=== PATIENT | female | born 1935 | race Caucasian/White ===

== ENCOUNTER 2017-05-10 13:47 | Emergency (ER) | payer MEDICARE ==
[2017-05-10] MEDS: ACETAMINOPHEN 325 MG TAB PO ONE (14:19)
--- NOTE | 2017-05-10 14:24 | Emergency Department Record ---
History of Present Illness - General Chief Complaint: Dizziness Stated Complaint: DIZZY/PAIN IN BACK OF NECK Time Seen by Provider: 05/10/17 14:04 Source: Patient Mode of Arrival: Ambulatory Limitations: No limitations - History of Present Illness Initial Comments: The patient is here for multiple issues. She has had a chronic problem with dizziness for almost a year. The symptoms come and go and presently have resolved. The real reason she is here is that she developed abdominal cramping last night that lasted a few hours and went away. She denied any CP, SOB, RANDY, nausea, vomiting, or diarrhea. She also has had posterior neck and head pain which came on last night and have also been intermittent. Presently the pain is gone. She denies any visual changes, arm or leg numbness, weakness or any balance issues. The patient is concerned she may have had a stroke so she decided to come to the ER. MD Complaint: Dizziness Onset/Timin -: Days(s) Timing: Gradual onset, Waxing/waning, Now resolved Description: Off-balance History of Same: No History of Trauma: No Severity: Moderate Improves With: Remaining still Worsens With: Movement - Amity Coma Scale Eye Response: (4) Open spontaneously Motor Response: (6) Obeys commands Verbal Response: (5) Oriented Steven Total: 15 - Related Data Home Medications Medication Instructions Recorded Confirmed Last Taken Levothyroxine Sodium [Synthroid] 25 mcg PO DAILY 05/10/17 05/10/17 05/10/17 Losartan Potassium [Losartan 25 mg PO DAILY 05/10/17 05/10/17 05/10/17 Potassium] Simvastatin [Simvastatin] 20 mg PO DAILY 05/10/17 05/10/17 05/10/17 Allergies Allergy/AdvReac Type Severity Reaction Status Date / Time No Known Drug Allergies Allergy Verified 05/10/17 13:53 Travel Screening - Travel/Exposure Within Last 30 Days Have you traveled within the last 30 days?: No - Travel/Exposure Within Last Year Have you traveled outside the [place] in the last year?: No - Additonal Travel Details Have you been exposed to anyone with a communicable illness?: No Review of Systems Constitutional: Denies: Chills, Fever Eyes: Denies: Eye discharge ENT: Denies: Congestion Respiratory: Denies: Cough, Dyspnea Past Medical History - SOCIAL HISTORY Smoking Status: Former smoker Alcohol Use: Occassional Drug Use: None - RESPIRATORY Hx Respiratory Disorders: No - CARDIOVASCULAR Hx Cardio Disorders: Yes Hx Hypertension: Yes Comment:: high cholesterol - NEURO Hx Neuro Disorders: No - GI Hx GI Disorders: Yes Hx of Polyps: Yes - Hx Genitourinary Disorders: No - ENDOCRINE Hx Endocrine Disorders: Yes Hx Thyroid Disease: Yes - MUSCULOSKELETAL Hx Musculoskeletal Disorders: Yes Hx Arthritis: Yes - PSYCH Hx Psych Problems: No - HEMATOLOGY/ONCOLOGY Hx Hematology/Oncology Disorders: Yes Hx Cancer: Yes (skin-left forehead) Hx Chemotherapy: No Hx Radiation Therapy: No Family Medical History Any Significant Family History?: Yes Hx Cancer: Brother/Sister *Cancer Comment: liver Physical Exam - General General Appearance: Alert, Oriented x3, Cooperative, No acute distress - Head Head exam: Atraumatic, Normocephalic, Normal inspection - Eye Eye exam: Normal appearance, PERRL, EOMI - ENT Throat exam: Normal inspection. negative: Tonsillar erythema, Tonsillar exudate - Neck Neck exam: Normal inspection, Full ROM, Tenderness (There is mild tenderness to palpation over the R posterior cervical area at the C3-4 area which exaclty reproduces the pain.). negative: Lymphadenopathy - Respiratory Respiratory exam: Normal lung sounds bilaterally. negative: Respiratory distress - Cardiovascular Cardiovascular Exam: Regular rate, Normal rhythm, Normal heart sounds - GI/Abdominal GI/Abdominal exam: Soft, Normal bowel sounds. negative: Tenderness - Extremities Extremities exam: Normal inspection, Full ROM, Normal capillary refill. negative: Tenderness - Back Back exam: Reports: Normal inspection, Full ROM. Denies: Muscle spasm, Rash noted, Tenderness - Neurological Neurological exam: Alert, Normal gait, Oriented X3, Other (Neg Drift and Rhomberg.). negative: Abnormal gait, Altered, Motor sensory deficit - Psychiatric Psychiatric exam: negative: Agitated, Anxious, Depressed - Skin Skin exam: negative: Rash Course Vital Signs 05/10/17 13:56 Temperature 98.5 F Pulse Rate 79 Respiratory 18 Rate Blood Pressure 184/82 Pulse Ox 97 - Reevaluation(s) Reevaluation #1: The patient is doing very well at this time. She is resting comfortably and still has the reproducible pain in the cervical area. She is instructed to use Tylenol for pain and to see her PCP next week for recheck. 05/10/17 15:16 Medical Decision Making - Data Complexity MDM Data: Labs Ordered and/or Reviewed, EKG Ordered and/or Reviewed - Lab Data Result diagrams: 05/10/17 14:32 05/10/17 14:32 - EKG Data -: EKG Interpreted by Me EKG: No Acute Changes, Normal EKG Disposition Disposition: Discharge Clinical Impression: Cervical strain, acute Qualifiers: Encounter type: initial encounter Qualified Code(s): S16.1XXA - Strain of muscle, fascia and tendon at neck level, initial encounter Disposition: Home, Self-Care Condition: (1) Good Instructions: Acute Neck Pain (ED) Additional Instructions: Please continue your regular medicines and use Tylenol for pain. Please see your PCP early next week for recheck. Return to the ER for any increasing pain, weakness or balance issues. Forms: Patient Portal Access Time of Disposition: 15:19
[2017-05-10 14:44] LABS: BASO % 1.1 % (0-6); EOS % 1.6 % (0-6); GRAN % 58.1 % (47-80); HEMATOCRIT 45.6 % (35.0-47.0); HEMOGLOBIN 14.9 gm/dl (11.6-16.0); LYMPH % 28.8 % (16-45); MEAN CORPUSCULAR HEMOGLOBIN 28.8 pg (27-33); MEAN CORPUSCULAR HGB CONC 32.7 g/dl (32-36); MEAN PLATELET VOLUME 10.5 fl (7.4-10.4); MONO % 10.4 % (0-9); PLATELET COUNT 269 K/uL (130-400); RED BLOOD COUNT 5.18 M/uL (3.80-5.40); RED CELL DISTRIBUTION WIDTH 13.7 % (11.5-14.5); WHITE BLOOD COUNT W/O DIFF 6.2 K/uL (4.2-12.2)
[2017-05-10 14:57] LABS: ALB/GLOB RATIO 1.4 (1.1-1.8); ALBUMIN 4.8 gm/dL (3.5-5.0); ALKALINE PHOSPHATASE 73 U/L (38-126); ALT/SGPT 31 U/L (9-52); AST/SGOT 31 U/L (14-36); BILIRUBIN,TOTAL 1.03 mg/dL (0.2-1.3); BLOOD UREA NITROGEN 16 mg/dL (7-17); CREATINE PHOSPHOKINASE 86 U/L (30-135); CREATININE 0.9 mg/dL (0.52-1.04); EST GLOMERULAR FILTRATION RATE > 60 ml/min; GLUCOSE,RANDOM 97 mg/dL (70-110); TOTAL PROTEIN 8.3 gm/dL (6.3-8.2)
[2017-05-10 15:09] LABS: CKMB 1.5 ug/L (0-6)
[2017-05-10 15:10] LABS: TROPONIN I < 0.012 ng/mL (0.00-0.034)
--- NOTE | 2017-05-11 10:39 | CT SCAN REPORT ---
EXAM: CT OF THE HEAD WITHOUT CONTRAST HISTORY: INTERMITTENT DIZZINESS AND UNSTEADINESS. MILD HEADACHE. TECHNIQUE: Routine noncontrast CT examination of the head was obtained. Comparison: None. FINDINGS: There is mild prominence of the subarachnoid spaces consistent with age related atrophy. The ventricles are not enlarged. Mild periventricular and subcortical white matter lucencies are scattered in each cerebral hemisphere. These are nonspecific, but likely areas of chronic small vessel ischemia. No other definite area of abnormally increased or decreased attenuation is noted throughout the brain substance. No abnormal extraaxial fluid collection is seen. No destructive bone lesion. The visualized paranasal sinuses and mastoid air cells are clear. The orbits as visualized are unremarkable. IMPRESSION: 1. NO CT EVIDENCE OF ACUTE MAJOR VESSEL INFARCT, INTRACRANIAL HEMORRHAGE, NOR MASS. 2. 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 MILD WHITE MATTER LUCENCIES IN EACH CEREBRAL HEMISPHERE ARE NONSPECIFIC, BUT LIKELY AREAS OF CHRONIC SMALL VESSEL ISCHEMIA. JOB NUMBER: [id number] MTDD
== END 2017-05-10 15:25 | disposition home or self-care (01) ==
LOC: ER 13:47
DX: S16.1XXA Strain of muscle, fascia and tendon at neck level, initial encounter (principal); R42 Dizziness and giddiness; R51 Headache; I10 Essential (primary) hypertension; X58.XXXA Exposure to other specified factors, initial encounter
CPT/HCPCS: 70450; 80053; 82550; 82553; 83690; 84484; 85025; 93005; 93010; 99284

== ENCOUNTER 2019-05-22 15:18 | Emergency (ER) | payer MEDICARE ==
[2019-05-22] MEDS ORDERED: ACETAMINOPHEN 325 MG TAB PO ONE (16:00)
--- NOTE | 2019-05-22 16:06 | Emergency Department Record ---
History of Present Illness - General Chief complaint: Pain Stated complaint: HEAD PRESSURE, ABDOMINAL PAIN Time Seen by Provider: 05/22/19 15:59 Source: Patient, RN notes reviewed Mode of Arrival: Ambulatory - History of Present Illness Initial comments: head pressure /headache and no vomiting and no other neuro symptoms and she had a cold last week. The head pressure started at noon today. balance is off walking slightly Onset/Timin -: Hour(s) Quality: Aching, Other Improves with: Nothing Worsens with: Nothing - Related Data Allergies Allergy/AdvReac Type Severity Reaction Status Date / Time No Known Drug Allergies Allergy Verified 05/22/19 15:48 Travel Screening - Travel/Exposure Within Last 30 Days Have you traveled within the last 30 days?: No - Travel/Exposure Within Last Year Have you traveled outside the [place] in the last year?: No - Additonal Travel Details Have you been exposed to anyone with a communicable illness?: No Review of Systems Reviewed: No additional complaints except as noted below Constitutional: Reports: As per HPI. Denies: Chills, Fever, Malaise, Night sweats, Weakness, Weight change Eyes: Reports: As per HPI. Denies: Eye discharge, Eye pain, Photophobia, Vision change ENT: Reports: As per HPI. Denies: Congestion, Dental pain, Ear pain, Epistaxis, Hearing loss, Throat pain Respiratory: Reports: As per HPI. Denies: Cough, Dyspnea, Hemoptysis, Stridor, Wheezes Cardiovascular: Reports: As per HPI. Denies: Arrhythmia, Chest pain, Dyspnea on exertion, Edema, Murmurs, Orthopnea, Palpitations, Paroxysmal nocturnal dyspnea, Rheumatic Fever, Syncope Endocrine: Reports: As per HPI. Denies: Fatigue, Heat or cold intolerance, Polydipsia, Polyuria Gastrointestinal: Reports: As per HPI. Denies: Abdominal pain, Constipation, Diarrhea, Hematemesis, Hematochezia, Melena, Nausea, Vomiting Genitourinary: Reports: As per HPI. Denies: Abnormal menses, Discharge, Dyspareunia, Dysuria, Frequency, Hematuria, Incontinence, Retention, Urgency Musculoskeletal: Reports: As per HPI. Denies: Arthralgia, Back pain, Gout, Joint swelling, Myalgia, Neck pain Skin: Reports: As per HPI. Denies: Bruising, Change in color, Change in h air/nails, Lesions, Pruritus, Rash Neurological: Reports: As per HPI, Abnormal gait, Headache. Denies: Confusion, Numbness, Paresthesias, Seizure, Tingling, Tremors, Vertigo, Weakness Psychiatric: Reports: As per HPI. Denies: Anxiety, Auditory hallucinations, Depression, Homicidal thoughts, Suicidal thoughts, Visual hallucinations Hematological/Lymphatic: Reports: As per HPI. Denies: Anemia, Blood Clots, Easy bleeding, Easy bruising, Swollen glands Past Medical History - SOCIAL HISTORY Smoking Status: Former smoker Alcohol Use: Occasional Drug Use: None - RESPIRATORY Hx Respiratory Disorders: No - CARDIOVASCULAR Hx Cardio Disorders: Yes Hx Hypertension: Yes Comment:: high cholesterol - NEURO Hx Neuro Disorders: No - GI Hx GI Disorders: Yes Hx of Polyps: Yes - Hx Genitourinary Disorders: No - ENDOCRINE Hx Endocrine Disorders: Yes Hx Thyroid Disease: Yes - MUSCULOSKELETAL Hx Musculoskeletal Disorders: Yes Hx Arthritis: Yes - PSYCH Hx Psych Problems: No - HEMATOLOGY/ONCOLOGY Hx Hematology/Oncology Disorders: Yes Hx Cancer: Yes (skin-left forehead) Hx Chemotherapy: No Hx Radiation Therapy: No Family Medical History Any Significant Family History?: No Hx Cancer: Brother/Sister *Cancer Comment: liver Physical Exam - General General Appearance: Alert, Oriented x3, Cooperative, No acute distress - Head Head exam: Normal inspection - Eye Eye exam: Normal appearance, PERRL Pupils: Normal accommodation - ENT ENT exam: Normal exam, Mucous membranes moist, Normal external ear exam, Normal orophraynx, TM's normal bilaterally Ear exam: Normal external inspection. negative: External canal tenderness Nasal Exam: Normal inspection. negative: Discharge, Sinus tenderness Mouth exam: Normal external inspection, Tongue normal Teeth exam: Normal inspection. negative: Dental caries Throat exam: Normal inspection. negative: Tonsillar erythema, Tonsillar exudate - Neck Neck exam: Normal inspection, Full ROM. negative: Tenderness - Respiratory Respiratory exam: Normal lung sounds bilaterally. negative: Respiratory distress - Cardiovascular Cardiovascular Exam: Regular rate, Normal rhythm, Normal heart sounds - GI/Abdominal GI/Abdominal exam: Soft, Normal bowel sounds. negative: Tenderness - Rectal Rectal exam: Deferred - exam: Deferred - Extremities Extremities exam: Normal inspection, Full ROM, Normal capillary refill. negativ e: Tenderness - Back Back exam: Reports: Normal inspection, Full ROM. Denies: Muscle spasm, Rash noted, Tenderness - Neurological Neurological exam: Alert, Oriented X3, Reflexes normal, Other (slight imbalance with ambulation) - Psychiatric Psychiatric exam: Normal affect, Normal mood - Skin Skin exam: Dry, Intact, Normal color, Warm Course Vital Signs 05/22/19 15:41 Temperature 97.1 F L Pulse Rate 82 Respiratory 18 Rate Blood Pressure 184/95 Pulse Ox 94 L - Reevaluation(s) Reevaluation #1: 05/22/19 17:05 feeling better Medical Decision Making - Data Complexity MDM Data: Labs Ordered and/or Reviewed, X-Ray Ordered and/or Reviewed (CT head negative) - Lab Data Result diagrams: 05/22/19 16:16 05/22/19 16:16 Disposition Clinical Impression: Headache Qualifiers: Headache type: unspecified Headache chronicity pattern: acute headache Intractability: not intractable Qualified Code(s): R51 - Headache Disposition: Home, Self-Care Condition: (1) Good Instructions: Tension Headache (ED) Additional Instructions: follow up with family Dr in 1-2 weeks and use tylenol for pain Forms: Patient Portal Access Time of Disposition: 17:07 Quality - Quality Measures Quality Measures: N/A - Blood Pressure Screening Does Patient Have Any of the Following: No, Active Dx of HTN Blood Pressure Classification: Hypertensive Reading Systolic Measurement: 184 Diastolic Measurement: 95 Screening for High Blood Pressure: Patient Exclusion, Hx of HTN [[id number]]
[2019-05-22 16:21] LABS: ABSOLUTE NEUTROPHIL COUNT 4.87; BASO % 0.9 % (0-6); EOS % 1.2 % (0-6); GRAN % 63.1 % (47-80); HEMATOCRIT 45.3 % (35.0-47.0); MEAN CELL VOLUME 88.5 fl (81-97); MEAN CORPUSCULAR HEMOGLOBIN 29.3 pg (27-33); MEAN CORPUSCULAR HGB CONC 33.1 g/dl (32-36); MEAN PLATELET VOLUME 10.1 fl (7.4-10.4); MONO % 9.8 % (0-9); PLATELET COUNT 311 K/uL (130-400); RED BLOOD COUNT 5.12 M/uL (3.80-5.40); RED CELL DISTRIBUTION WIDTH 13.5 % (11.5-14.5); WHITE BLOOD COUNT W/O DIFF 7.7 K/uL (4.2-12.2)
[2019-05-22 16:30] LABS: BLOOD UREA NITROGEN 14 mg/dL (8-23); CREATININE 0.8 mg/dL (0.5-0.9); EST GLOMERULAR FILTRATION RATE > 60 mL/min
[2019-05-22 16:33] LABS: GLUCOSE,RANDOM 102 mg/dL (74-109)
--- NOTE | 2019-05-23 21:06 | CT SCAN REPORT ---
EXAM: CT SCAN HEAD WO CONTRAST HISTORY: HEAD PRESSURE, CONFUSION. COMPARISON: 05/10/2017. TECHNIQUE: Standard CT imaging of the head without contrast. FINDINGS: The ventricles and sulci are normal for the patient's age. Patchy hypodensity in the white matter is nonspecific but likely chronic small vessel ischemic changes. No intracranial hemorrhage or extraaxial fluid collection is identified. No significant mass effect or midline shift. The visualized paranasal sinuses and mastoid air cells are clear. IMPRESSION: STABLE NONCONTRAST HEAD CT WITHOUT EVIDENCE FOR ACUTE INTRACRANIAL ABNORMALITY. JOB NUMBER: [id number] [facility]
== END 2019-05-22 17:29 | disposition home or self-care (01) ==
LOC: ER 15:18
DX: R51 Headache (principal); R26.89 Other abnormalities of gait and mobility; R10.9 Unspecified abdominal pain; I10 Essential (primary) hypertension; F17.210 Nicotine dependence, cigarettes, uncomplicated
CPT/HCPCS: 70450; 80048; 85025; 85730; 99283; 99284